=== PATIENT | male | born 1960 | race Two or more races ===

== ENCOUNTER → 2018-06-05 | Outpatient (CLI) | payer OTHER ==
[~2018-06-05] MED LIST: GADOBUTROL 10 ML VIAL IVP ONE
== END ==
LOC: FIMAGING 11:25
PROVIDERS: ATTEND Physician Assistant Medical
DX: R20.2 Paresthesia of skin (principal); R90.82 White matter disease, unspecified; M50.322 Other cervical disc degeneration at C5-C6 level
CPT/HCPCS: 82565-PO; A9585